=== PATIENT | male | born 1975 | race Caucasian/White ===

== ENCOUNTER 2019-08-28 17:07 | Emergency (ER) | payer SELFPAY ==
[2019-08-28] MEDS ORDERED: KETOROLAC TROMETHAMINE 60 MG/2 ML VIAL IM ONE (17:15)
[2019-08-28] MEDS ORDERED: CYCLOBENZAPRINE HCL 10 MG TABLET (FP) PO ONE (17:15)
--- NOTE | 2019-08-28 17:15 | PDOC ---
Rapid Medical Evaluation Time Seen by Provider: 08/28/19 17:11 Medical Evaluation: 08/28/19 17:14 Pt c/o: low back pain x 8 days after lifting heavy item, no incontinence, no saddle anesthesia, no hx of lbp. took motrin with mod effect Pt on brief exam: ambulatory, no midline tenderness Pt ordered for: flexeril and toradol Pt to proceed to the ED Discharge Disposition - Diagnosis Low back pain - Referrals - Patient Instructions - Post Discharge Activity
[2019-08-28 17:21] VITALS: BP 121/84; PULSE 64; TEMP 98.5; BMI 29.1
[2019-08-28] MEDS ORDERED: KETOROLAC TROMETHAMINE 60 MG/2 ML VIAL ONE (17:46)
--- NOTE | 2019-08-28 17:51 | PDOC ---
History of Present Illness - General Chief Complaint: Back Pain Stated Complaint: BACK PAIN Time Seen by Provider: 08/28/19 17:11 History Source: Patient Exam Limitations: No Limitations Past History - Past Medical History Allergies/Adverse Reactions: Allergies Allergy/AdvReac Type Severity Reaction Status Date / Time No Known Allergies Allergy Verified 08/28/19 17:16 Home Medications: Ambulatory Orders Cyclobenzaprine HCl [Flexeril -] 10 mg PO TID PRN #21 tablet 08/28/19 COPD: No - Psycho Social/Smoking Cessation Hx Smoking History: Never smoked Hx Alcohol Use: No Drug/Substance Use Hx: No *Physical Exam - Vital Signs Last Vital Signs Temp Pulse Resp BP Pulse Ox 98.5 F 64 19 121/84 100 08/28/19 17:14 08/28/19 17:14 08/28/19 17:14 08/28/19 17:14 08/28/19 17:14 - Physical Exam General Appearance: No: Apparent Distress Musculoskeletal: positive: Muscle Spasm (along L lumbar paraspinal muscles), Other (pain with flexion of spine). 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 Has been taking 2 Motrin a day which has been helping, but pain still not fully gone. Denies prior back issues. Denies fever, sob, cp, abd pain, n/v, urinary complaints, saddle/groin paresthesia, bowel/bladder incontinence. Back muscle spasms; no evidence of sciatica, no concern for cauda equina Given Toradol here Unable to give muscle relaxer as driving home 08/28/19 17:46 Discharge - Discharge Information Problems reviewed: Yes Clinical Impression/Diagnosis: Back muscle spasm Condition: Stable Disposition: HOME - Admission No - Additional Discharge Information Prescriptions: Cyclobenzaprine HCl [Flexeril -] 10 mg PO TID PRN #21 tablet PRN Reason: Muscle Spasms Prescription Drug Monitoring Program (I-STOP) results: I-STOP not reviewed - Follow up/Referral - Patient Discharge Instructions Patient Printed Discharge Instructions: DI for Back Spasm Additional Instructions: Thank you for choosing [facility]. It was a pleasure taking care of you. You may take Motrin 600 mg every 6 hours by mouth as needed for mild to moderate pain. Take Motrin with food. Take Flexeril as needed for muscle spasms. This medication can also make you drowsy so please be cautious with driving or performing heavy physical work. Return to the Emergency Department if your symptoms worsen or persist, you have fever, shortness of breath, chest pain, severe abdominal pain, vomiting weakness of extremities, unable to walk, unable to control bowel or bladder movements or other concerning symptoms. - Post Discharge Activity
== END 2019-08-28 18:04 | disposition home or self-care (01) ==
LOC: JERFT 17:07
PROC: 3E0233Z Introduction of Anti-inflammatory into Muscle, Percutaneous Approach (ICD-10-PCS; principal; 2019-08-28)
DX: R25.2 Cramp and spasm (principal)
CPT/HCPCS: 99281-25